=== PATIENT | male | born 1970 | race American Indian/Alaskan Native ===

== ENCOUNTER 2018-09-29 10:50 | Emergency (ER) | payer MEDICAID, OTHER ==
[2018-09-29 10:51] VITALS: BMI 226.1
[2018-09-29 11:21] VITALS: BP 127/91; PULSE 71; RESP 18; TEMP 98.4; O2SAT 100
--- NOTE | 2018-09-29 12:00 | ED PDOC ---
HPI: Abdomen Time Seen by Provider: 09/29/18 11:28 Chief Complaint (Nursing): Abdominal Pain Chief Complaint (Provider): Abdominal pain History Per: Patient History/Exam Limitations: no limitations Additional Complaint(s): Pt reports R groin pain X 3 days, has h/o hernia. Denies fever, nausea, vomiting, constipation, diarrhea. Last BM today. No difficulty urinating. Past Medical History Reviewed: Nursing Documentation, Vital Signs Vital Signs: Last Vital Signs Temp 98.4 F 09/29/18 11:18 Pulse 71 09/29/18 11:18 Resp 18 09/29/18 11:18 BP 127/91 H 09/29/18 11:18 Pulse Ox 100 09/29/18 11:18 - Medical History PMH: No Chronic Diseases Denies: HIV, HTN, Seizures, Sexually Transmitted Disease - Surgical History Surgical History: No Surg Hx - Family History Family History: States: Unknown Family Hx - Social History Current smoker - smoking cessation education provided: Yes Alcohol: None - Home Medications Home Medications: Ambulatory Orders Medication Instructions Recorded Ibuprofen [Motrin] 600 mg PO Q6H PRN #20 tab 09/29/18 - Allergies Allergies/Adverse Reactions: Allergies Allergy/AdvReac Type Severity Reaction Status Date / Time No Known Allergies Allergy Verified 01/29/15 14:15 Review of Systems Constitutional: Negative for: Fever, Chills Cardiovascular: Negative for: Chest Pain, Palpitations Respiratory: Negative for: Cough, Shortness of Breath Gastrointestinal: Positive for: Abdominal Pain. Negative for: Nausea, Vomiting, Diarrhea Genitourinary Male: Negative for: Dysuria, Hematuria Musculoskeletal: Negative for: Back Pain Skin: Negative for: Rash, Lesions Neurological: Negative for: Headache Physical Exam - Reviewed Nursing Documentation Reviewed: Yes Vital Signs Reviewed: Yes - Physical Exam Appears: Positive for: Well, No Acute Distress Skin: Positive for: Normal Color, Warm, Dry Eye Exam: Positive for: Normal appearance, EOMI, PERRL Cardiovascular/Chest: Positive for: Regular Rate, Rhythm Respiratory: Positive for: Normal Breath Sounds Gastrointestinal/Abdominal: Positive for: Bowel Sounds, Soft, Tenderness (R groin). Negative for: Mass, Distended, Guarding, Rebound, Hernia Back: Positive for: Normal Inspection. Negative for: L CVA Tenderness, R CVA Tenderness Extremity: Positive for: Normal ROM Neurologic/Psych: Positive for: Alert, Oriented - Laboratory Results Result Diagrams: 09/29/18 12:11 09/29/18 12:11 - ECG O2 Sat by Pulse Oximetry: 100 Medical Decision Making Medical Decision Makin yo male with R groin pain. - labs - CT abd/pelvis 12:15 Pt told RN that he wants to speak to Crisis. Accession No. : [id number] Patient Name / ID : JULES TEMPLE / [id number] Exam Date : 09/29/2018 13:36:14 ( Approved ) Study Comment : Sex / Age : M / 48Y Creator : Mg Edwards MD Dictator : Mg Edwards MD Slime Plant Operator : Milled Rice Broker : Mg Edwards MD Approver2 : Report Date : 09/29/2018 15:39:47 My Comment : Date of service: 09/29/2018 PROCEDURE: CT Abdomen and Pelvis with contrast HISTORY: R groin pain, h/o hernia COMPARISON: None. TECHNIQUE: Following the intravenous administration of iodinated contrast material, a CT examination of the abdomen and pelvis performed from the domes of the diaphragms to the symphysis pubis with reformatted datasets provided in axial, sagittal and coronal planes. Oral contrast was not administered as per referring physician request. Coronal and sagittal reformats were generated. Contrast dose: Omnipaque 300, 90 cc Radiation dose: Total exam DLP = 414.84 mGy-cm. This CT exam was performed using one or more of the following dose reduction techniques: Automated exposure control, adjustment of the mA and/or kV according to patient size, and/or use of iterative reconstruction technique. FINDINGS: LOWER THORAX: A moderate-sized pneumatocele is identified in the left lower lobe with lung bases otherwise reflecting minimal dependent atelectasis bilaterally. LIVER: Unremarkable. No gross lesion or ductal dilatation. GALLBLADDER AND BILE DUCTS: Unremarkable. PANCREAS: Unremarkable. No gross lesion or ductal dilatation. SPLEEN: Unremarkable. ADRENALS: Unremarkable. No mass. KIDNEYS AND URETERS: Unremarkable. No hydronephrosis. No solid mass. VASCULATURE: Unremarkable. No aortic aneurysm. No aortic atherosclerotic calcification or mural plaque present. BOWEL: Stomach is distended with retained food. No bowel obstruction appreciable. No pericolic or perienteric reactive change. Questionable thickening of distal descending/proximal sigmoid segment colon though this could be a function of retained fecal material simulating mural thickening. No pericolic reaction. Precautionary follow-up colonoscopy or barium enema is recommended. APPENDIX: Normal appendix. PERITONEUM: There is a tiny umbilical hernia containing only fat. No significant bowel involvement. No incarceration of mesentery or bowel. No mesenteric reaction or ascites. LYMPH NODES: Unremarkable. No enlarged lymph nodes. BLADDER: Unremarkable. REPRODUCTIVE: Unremarkable. BONES: No acute fracture. OTHER FINDINGS: None. IMPRESSION: No definite acute abdominal or pelvic findings by standard CT criteria. Moderate fecal loading seen throughout large-bowel, particularly distal segments annually constipation is question. Questionable thickening of a short segment of distal descending/proximal sigmoid colon is appreciated which may be artifactual. Precautionary follow-up elective colonoscopy or barium enema is recommended to exclude potential underlying lesion here. Incidental pneumatocele left lower lobe 4.9 cm. Findings discussed with patient. Copy of CT report given to patient. Disposition - Clinical Impression Clinical Impression: Groin pain, Adjustment disorder - Disposition Referrals: [facility] [Outside] Disposition: Routine/Home Disposition Time: 16:00 Condition: STABLE Prescriptions: Ibuprofen [Motrin] 600 mg PO Q6H PRN #20 tab PRN Reason: Pain, Moderate (4-7) Instructions: Adjustment Disorder Forms: [employer] (Azeri)
[2018-09-29 12:16] LABS: BASO # 0.1 K/uL (0.0-0.2); BASO % 0.7 % (0.0-2.0); EOS # 0.3 K/uL (0.0-0.7); EOS % 3.6 % (0.0-4.0); LYMPH # 1.6 K/uL (1.0-4.3); MEAN CELL VOLUME 102.1 fl (80.0-94.0); MEAN CORPUSCULAR HEMOGLOBIN 33.9 pg (27.0-31.0); MEAN CORPUSCULAR HGB CONC 33.2 g/dL (33.0-37.0); MEAN PLATELET VOLUME 9.5 fl (7.2-11.7); MONO # 0.5 K/uL (0.0-0.8); MONO % 7.4 % (0.0-10.0); NEUT # 4.8 K/uL (1.8-7.0); NEUT % 66.3 % (50.0-75.0); NRBC % 0.1 % (0.0-0.0); RBC 4.12 Mil/uL (4.40-5.90); RED CELL DISTRIBUTION WIDTH 13.9 % (11.5-14.5); WHITE BLOOD COUNT 7.2 K/uL (4.8-10.8)
[2018-09-29 12:30] LABS: SQUAMOUS EPITHIAL < 1 /hpf (0-5); URINE BILIRUBIN NEGATIVE (NEGATIVE); URINE BLOOD NEGATIVE (NEGATIVE); URINE CLARITY SLIGHTY-CLOUDY (Clear); URINE COLOR YELLOW (YELLOW); URINE GLUCOSE (UA) NEG (NEGATIVE); URINE LEUKOCYTE ESTERASE NEG Leu/uL (Negative); URINE PROTEIN NEGATIVE (NEGATIVE)
[2018-09-29 12:31] LABS: INR 0.9; PROTHROMBIN TIME 10.7 Seconds (9.8-13.1)
[2018-09-29 12:33] LABS: ALB/GLOB RATIO 1.2 (1.0-2.1); ALBUMIN 4.5 g/dL (3.5-5.0); BLOOD UREA NITROGEN 14 mg/dl (9-20); CALCIUM 9.4 mg/dL (8.4-10.2); GFR NON-AFRICAN AMERICAN > 60
[2018-09-29 12:34] LABS: PARTIAL THROMBOPLASTIN TIME 30.2 Seconds (25.6-37.1)
[2018-09-29 12:36] LABS: ALT/SGPT 14 U/L (21-72); AST/SGOT 30 U/L (17-59)
[2018-09-29] MEDS ORDERED: Sodium Chloride 0.9% 50 ML IV ONE (13:19)
[2018-09-29] MEDS ORDERED: Iohexol 300 100 ML IJ ONE (13:19)
--- NOTE | 2018-09-29 15:47 | CT ---
Date of service: 09/29/2018 PROCEDURE: CT Abdomen and Pelvis with contrast HISTORY: R groin pain, h/o hernia COMPARISON: None. TECHNIQUE: Following the intravenous administration of iodinated contrast material, a CT examination of the abdomen and pelvis performed from the domes of the diaphragms to the symphysis pubis with reformatted datasets provided in axial, sagittal and coronal planes. Oral contrast was not administered as per referring physician request. Coronal and sagittal reformats were generated. Contrast dose: Omnipaque 300, 90 cc Radiation dose: Total exam DLP = 414.84 mGy-cm. This CT exam was performed using one or more of the following dose reduction techniques: Automated exposure control, adjustment of the mA and/or kV according to patient size, and/or use of iterative reconstruction technique. FINDINGS: LOWER THORAX: A moderate-sized pneumatocele is identified in the left lower lobe with lung bases otherwise reflecting minimal dependent atelectasis bilaterally. LIVER: Unremarkable. No gross lesion or ductal dilatation. GALLBLADDER AND BILE DUCTS: Unremarkable. PANCREAS: Unremarkable. No gross lesion or ductal dilatation. SPLEEN: Unremarkable. ADRENALS: Unremarkable. No mass. KIDNEYS AND URETERS: Unremarkable. No hydronephrosis. No solid mass. VASCULATURE: Unremarkable. No aortic aneurysm. No aortic atherosclerotic calcification or mural plaque present. BOWEL: Stomach is distended with retained food. No bowel obstruction appreciable. No pericolic or perienteric reactive change. Questionable thickening of distal descending/proximal sigmoid segment colon though this could be a function of retained fecal material simulating mural thickening. No pericolic reaction. Precautionary follow-up colonoscopy or barium enema is recommended. APPENDIX: Normal appendix. PERITONEUM: There is a tiny umbilical hernia containing only fat. No significant bowel involvement. No incarceration of mesentery or bowel. No mesenteric reaction or ascites. LYMPH NODES: Unremarkable. No enlarged lymph nodes. BLADDER: Unremarkable. REPRODUCTIVE: Unremarkable. BONES: No acute fracture. OTHER FINDINGS: None. IMPRESSION: No definite acute abdominal or pelvic findings by standard CT criteria. Moderate fecal loading seen throughout large-bowel, particularly distal segments annually constipation is question. Questionable thickening of a short segment of distal descending/proximal sigmoid colon is appreciated which may be artifactual. Precautionary follow-up elective colonoscopy or barium enema is recommended to exclude potential underlying lesion here. Incidental pneumatocele left lower lobe 4.9 cm.
== END 2018-09-29 18:14 | disposition home or self-care (01) ==
LOC: H.ER 10:50
DX: R10.30 Lower abdominal pain, unspecified (principal); F43.20 Adjustment disorder, unspecified; K59.00 Constipation, unspecified
CPT/HCPCS: 74177; 80053; 81003; 85025; 85610; 85730; 99283; Q9967